=== PATIENT | male | born 1995 | race Caucasian/White ===

== ENCOUNTER 2025-05-05 23:55 | Emergency (ER) | payer BC, SELFPAY ==
[2025-05-05 23:57] VITALS: BP 177/99
[2025-05-06 00:08] VITALS: BP 151/88
--- NOTE | 2025-05-06 00:21 | ED.GENMED ---
History of Present Illness
General
Chief Complaint: Breathing Problem
Time Seen by Provider: 05/06/25 00:21
History of Present Illness
History of Present Illness:
FOCUSED PAST MEDICAL HISTORY
- Asthma
REVIEW OF OLD RECORDS
- No old records available for review
Note:
CHIEF COMPLAINT(S)
Shortness of breath.
HISTORY OF PRESENT ILLNESS
The patient is a 29-year-old male who presented with shortness of breath. The patient expressed that it feels 'like breathing through a straw.' He is known to have a history of acute asthma. The patient reported not having any insurance until
recently and thus has not been using any prescribed inhalers. He has no history of using steroid medication for breathing and denies fever. The patient also mentioned some productive coughing. Upon examination, the patient was moving air well. It
was decided to administer a breathing treatment to alleviate symptoms.
SOCIAL DETERMINANTS AFFECTING HEALTH
The patient recently obtained health insurance after previously being uninsured, which has impacted his ability to access necessary medications like inhalers. This insurance gap may have contributed to inadequate asthma management.
PHYSICAL EXAM
General: Alert, no acute distress.
Skin: Warm, dry.
Head: Normocephalic, atraumatic.
Neck: Supple, trachea midline.
Eye, Ears, Nose, Mouth, and Throat: Oral mucosa moist.
Cardiovascular: Normal peripheral perfusion, No edema.
Respiratory: Respirations are non-labored.
Gastrointestinal: Abdomen nondistended.
Back: Normal range of motion, Normal alignment.
Musculoskeletal: Normal range of motion, normal strength.
Neurological: Alert and oriented to person, place, time, and situation, No focal neurological deficit observed.
Psychiatric: Cooperative, appropriate mood & affect.
PLAN
The patient will receive a breathing treatment while in the ER. A prescription for an albuterol inhaler will be provided for ongoing management of asthma symptoms.
DIFFERENTIAL DIAGNOSIS
The Differential Diagnosis includes, in no particular order and is not limited to:
1. Asthma exacerbation
2. Chronic obstructive pulmonary disease (COPD)
3. Pneumonia
4. Pulmonary embolism
5. Heart failure
6. Viral respiratory infection
7. Anxiety-related shortness of breath
8. Airway obstruction
9. Bronchitis
10. Allergic reaction
Disposition:
SUMMARY OF ENCOUNTER
The patient, a 29-year-old male with a history of acute asthma, presented to the emergency department with shortness of breath described as 'like breathing through a straw.' He had not been using prescribed inhalers due to lack of insurance which he
recently obtained. To alleviate his symptoms, he was administered a breathing treatment.
REASSESSMENT
Upon reassessment, the patient reported marked improvement following the breathing treatment. Oxygen saturations remained stable at 98% to 100%.
PLAN
The patient will be provided with a prescription for an albuterol inhaler to manage ongoing asthma symptoms.
PATIENT EDUCATION AND COUNSELING
The patient was educated on the usage of the albuterol inhaler, the importance of regular medication adherence, and advised about monitoring for any worsening of symptoms.
FOLLOW-UP INSTRUCTIONS
The patient was instructed to follow up with his primary care physician to ensure continued management of his asthma and further evaluation.
MEDICATION RECONCILIATION
1. Albuterol inhaler prescribed for ongoing asthma management.
MEDICAL DECISION MAKING
- Number and Complexity of Problems Addressed: Chronic conditions affecting care - history of acute asthma. Differential diagnoses considered included asthma exacerbation, COPD, pneumonia, pulmonary embolism, heart failure, viral respiratory
infection, anxiety-related shortness of breath, airway obstruction, bronchitis, and allergic reaction.
- Risk: Prescription medication was prescribed (albuterol inhaler) to manage asthma symptoms. Care was impacted by recent acquisition of health insurance, affecting prior access to necessary medications.
DIAGNOSIS
1. Reactive airway disease (ICD-10: J45.909)
UPDATE
- Markedly improved after neb given
- Room air sats remain 98 to 100% and he is in no distress
Phy Exam
Physical Exam
Physical Exam:
See HPI
Course
Orders/Labs/Results
Orders:
Orders
05/06/25 00:29
Ipratropium/Albuterol Sulfate [Duoneb] 3 ml INH R NOW STA
Vital Signs
Initial and Last Documented VS:
Initial Vital Signs
Temp Pulse Resp BP Pulse Ox
36.6 C 77 18 177/99 99
05/05/25 23:57 05/05/25 23:57 05/05/25 23:57 05/05/25 23:57 05/05/25 23:57
Last Documented Vital Signs
Temp Pulse Resp BP Pulse Ox
36.6 C 63 13 151/88 99
05/05/25 23:57 05/06/25 00:15 05/06/25 00:15 05/06/25 00:08 05/06/25 00:22
*Pulse Oximetry
SaO2: 99
Oxygen Mode of Delivery: Room air
Patient hypoxic: no
*Critical Care Note
Total Time (30-74mins, 75-104mins- exclusive of procedures): Not Applicable
ED Attending Note
-
Portions of this chart may have been created with voice recognition software.� Occasional wrong word or��sound alike� substitutions may have occurred due to the inherent limitations of voice recognition software.
Discharge Plan
Departure
Patient Disposition: Home (Routine Discharge)
Date of Disposition: 05/06/25
Time of Disposition: 00:44
Patient with high blood pressure during this ER visit?: Yes
Discharge Problem:
Reactive airway disease
Instructions: Asthma, Adult (DC), Shortness of Breath (Dyspnea) (DC), BLOOD PRESSURE
Prescriptions:
New
albuterol sulfate [Ventolin HFA] 90 mcg/actuation HFA aerosol inhaler
2 puff inhalation QID PRN (Reason: shortness of breath or wheezing) Qty: 8.5 0RF
Stand Alone Forms: Return to Work
Activity Restrictions/Additional Instructions:
I sent a prescription for albuterol inhaler to your pharmacy. Return if worse or other concerns.
Interventions
Interventions:
*Risk Screen - Suicide Last Done: 05/05/25 23:57
*General Assessment Last Done: 05/06/25 00:14
*Neglect/Abuse Screening Last Done: 05/06/25 00:14
*ED COVID-19 Vaccine History Last Done: 05/06/25 00:14
*ED Influenza Vaccine History Last Done: 05/06/25 00:14
[facility] Fall Risk Assessment Tool Last Done: 05/06/25 00:17
*Nursing Disposition Last Done: 05/06/25 00:57
ED- Cardiac Assessment Last Done: 05/06/25 00:18
ED- Pulmonary Assessment Last Done: 05/06/25 00:18
Discharge Date and Time
Discharge Date/Time: 05/06/25 00:57
Print Language: URDU
[2025-05-06] MEDS: DUONEB 3 ML INH (00:31)
== END 2025-05-06 00:57 | disposition home or self-care (01) ==
LOC: EMR 23:55
PROVIDERS: EMERGENCY PHYSICIAN Emergency Medicine
DX: J45.909 Unspecified asthma, uncomplicated (principal)
CPT/HCPCS: 99283; 94640